=== PATIENT | male | born 1965 | race African-American/Black ===

== ENCOUNTER 2017-09-18 14:32 | Emergency (ER) | payer OTHER ==
[~2017-09-18] VITALS: Ht 188 cm; Wt 92.9 kg
[2017-09-18 14:33] VITALS: BP 148/93
[2017-09-18] MEDS ORDERED: KETOROLAC 30 MG/1 ML ONE (14:53)
[2017-09-18] MEDS ORDERED: DIAZEPAM 5 MG TABLET ONE (14:53)
[2017-09-18] MEDS ORDERED: KETOROLAC 30 MG/1 ML IM ONE (15:00)
[2017-09-18] MEDS ORDERED: DIAZEPAM 5 MG TABLET PO ONE (15:00)
== END 2017-09-18 16:35 | disposition home or self-care (01) ==
LOC: ED 15:30
DX: S13.4XXA Sprain of ligaments of cervical spine, initial encounter (principal); S23.3XXA Sprain of ligaments of thoracic spine, initial encounter; S33.5XXA Sprain of ligaments of lumbar spine, initial encounter; V49.49XA Driver injured in collision with other motor vehicles in traffic accident, initial encounter; Y93.89 Activity, other specified; Y99.8 Other external cause status; Y92.410 Unspecified street and highway as the place of occurrence of the external cause
CPT/HCPCS: 72072; 72110; 72125; 96372; 99284; J1885